=== PATIENT | male | born 1980 | race African-American/Black ===

== ENCOUNTER 2018-03-30 12:33 | Inpatient (IN) | payer MEDICAID ==
[~2018-03-30] VITALS: Ht 175.3 cm; Wt 77.1 kg
[2018-03-30] MEDS ORDERED: MORPHINE SULFATE 4 MG/ML CPJ (NOT FOR IM USE) IV STA (12:45)
[2018-03-30] MEDS ORDERED: ONDANSETRON HCL 4MG/2ML INJ IV STA (12:45)
[2018-03-30 13:49] LABS: BASOPHILS % 0.4 % (0.0-2.0); HEMATOCRIT. 44.2 % (42.0-52.0); HEMOGLOBIN. 15.1 g/dL (14.0-18.0); LYMPHOCYTES % 8.9 % (20.0-50.0); MEAN CORPUSCULAR HEMOGLOBIN 34.2 pg (28.0-32.0); MEAN CORPUSCULAR VOLUME 100.2 fL (80.0-94.0); MEAN PLATELET VOLUME 7.5 fl (7.4-10.4); MONOCYTES % 5.4 % (2.0-8.0); NEUTROPHILS % 85.3 % (40.0-76.0); PLATELET 444 x1000/uL (130-400); RED BLOOD CELL COUNT 4.42 mill/uL (4.7-6.1); RED CELL DISTRIBUTION WIDTH 13.9 % (11.6-14.6)
[2018-03-30 13:51] LABS: CHLORIDE 97 mEq/L (98-107)
[2018-03-30 13:55] LABS: INR 1.1
[2018-03-30] MEDS ORDERED: SODIUM CHLORIDE 0.9% 1,000 ML IV ONE (14:24)
[2018-03-30] MEDS ORDERED: MORPHINE SULFATE 4 MG/ML CPJ (NOT FOR IM USE) IV ONE ×2 (14:30)
[2018-03-30] MEDS ORDERED: KETOROLAC 30MG/ML VIAL IV NR (16:27)
[2018-03-30 17:18] LABS: CLARITY URINE CLEAR (CLEAR); COLOR URINE YELLOW (YELLOW); KETONES URINE 4+ (NEGATIVE); LEUKOCYTE ESTERASE URINE NEGATIVE (NEGATIVE); NITRITE URINE NEGATIVE (NEGATIVE); OCCULT BLOOD URINE 1+ (NEGATIVE); PROTEIN URINE 2+ (NEGATIVE); SPECIFIC GRAVITY URINE 1.026 (1.005-1.030); UROBILINOGEN URINE 0.2 E.U./dL (0.2-1.0)
[2018-03-30 18:00] VITALS: BP 144/92
[2018-03-30] MEDS ORDERED: HYDRALAZINE 20MG/ML VIAL IV PRN (18:45)
[2018-03-30] MEDS ORDERED: ONDANSETRON HCL 4MG/2ML INJ IV PRN (18:45)
[2018-03-30] MEDS: MORPHINE SULFATE 4 MG/ML CPJ (NOT FOR IM USE) IV PRN ×2 (19:00→22:57)
[2018-03-30] MEDS ORDERED: HYDRALAZINE 10 MG in SODIUM CHLORIDE 0.9% 49.5 ML IV PRN (19:00)
[2018-03-30] MEDS ORDERED: INFLUENZA VIRUS VACCINE(AFLURIA) 0.5ML SYR IM ONE (19:30)
[2018-03-30] MEDS: DEXT 5%/0.45% NACL 1000ML 1,000 ML IV SCH (19:52)
[2018-03-30 20:00] VITALS: BP_SYST 140; BP_SYST 147; BP_DIAS 90; BP_DIAS 97
[2018-03-31] VITALS: BP 140/88
[2018-03-31] MEDS: MORPHINE SULFATE 4 MG/ML CPJ (NOT FOR IM USE) IV PRN ×4 (03:27→20:47)
[2018-03-31 04:00] VITALS: BP 144/87
[2018-03-31 06:17] LABS: BASOPHILS % 0.2 % (0.0-2.0); EOSINOPHILS % 0.2 % (0.0-5.0); HEMATOCRIT. 40.6 % (42.0-52.0); HEMOGLOBIN. 14.3 g/dL (14.0-18.0); LYMPHOCYTES % 10.3 % (20.0-50.0); MEAN CORPUSCULAR HEMOGLOBIN 34.9 pg (28.0-32.0); MEAN CORPUSCULAR VOLUME 99.3 fL (80.0-94.0); MEAN PLATELET VOLUME 7.1 fl (7.4-10.4); MONOCYTES % 6.2 % (2.0-8.0); NEUTROPHILS % 83.1 % (40.0-76.0); PLATELET 337 x1000/uL (130-400); RED BLOOD CELL COUNT 4.09 mill/uL (4.7-6.1); RED CELL DISTRIBUTION WIDTH 14.4 % (11.6-14.6)
[2018-03-31] MEDS: DEXT 5%/0.45% NACL 1000ML 1,000 ML IV SCH ×2 (06:37→16:27)
[2018-03-31 06:45] LABS: CHLORIDE 100 mEq/L (98-107)
[2018-03-31 08:00] VITALS: BP 141/97
[2018-03-31 12:00] VITALS: BP 144/94
[2018-03-31 16:00] VITALS: BP 147/96
[2018-03-31] MEDS ORDERED: CLONIDINE 0.1MG TABLET PO PRN ×2 (16:45→22:45)
[2018-03-31] MEDS ORDERED: ONDANSETRON HCL 4MG/2ML INJ IV PRN (19:00)
[2018-03-31] MEDS ORDERED: LORAZEPAM 0.5MG TABLET PO PRN (19:00)
[2018-03-31 20:00] VITALS: BP 135/91
[2018-03-31] MEDS: FAMOTIDINE 20MG/2ML VIAL IV SCH (20:46)
[2018-03-31] MEDS ORDERED: MVI, ADULT NO.1 10 ML, FOLIC ACID 1 MG, THIAMINE HCL 100 MG in SODIUM CHLORIDE 0.9% 1,0... IV SCH ×4 (21:00)
[2018-03-31] MEDS: CHLORDIAZEPOXIDE 25MG CAPSULE PO SCH (21:04)
[2018-03-31] MEDS: ZOLPIDEM TARTRATE 5MG TABLET PO PRN (22:28)
[2018-04-01] VITALS: BP 131/89
[2018-04-01] MEDS: DEXT 5%/0.45% NACL 1000ML 1,000 ML IV SCH ×4 (03:01→16:07)
[2018-04-01 04:00] VITALS: BP 136/76
[2018-04-01] MEDS: MORPHINE SULFATE 4 MG/ML CPJ (NOT FOR IM USE) IV PRN ×3 (05:07→18:43)
[2018-04-01] MEDS: CHLORDIAZEPOXIDE 25MG CAPSULE PO SCH ×4 (05:07→21:12)
[2018-04-01 08:00] VITALS: BP 138/69
[2018-04-01] MEDS: MULTIVITAMINS,THER W-MINERALS TABLET PO SCH (08:32)
[2018-04-01] MEDS: THIAMINE HCL 100MG TABLET PO SCH (08:32)
[2018-04-01] MEDS: FOLIC ACID 1MG TABLET PO SCH (08:32)
[2018-04-01] MEDS: FAMOTIDINE 20MG/2ML VIAL IV SCH ×2 (08:32→21:12)
[2018-04-01 12:00] VITALS: BP_SYST 128; BP_SYST 134; BP_DIAS 84; BP_DIAS 93
[2018-04-01 16:00] VITALS: BP 145/93
[2018-04-01] MEDS: AMLODIPINE 5MG TABLET PO SCH (18:41)
[2018-04-01 20:00] VITALS: BP 125/79
[2018-04-01] MEDS: ZOLPIDEM TARTRATE 5MG TABLET PO PRN (21:12)
[2018-04-02] VITALS: BP 125/79
[2018-04-02] MEDS: DEXT 5%/0.45% NACL 1000ML 1,000 ML IV SCH ×3 (02:07→14:05)
[2018-04-02 04:00] VITALS: BP 134/69
[2018-04-02] MEDS: CHLORDIAZEPOXIDE 25MG CAPSULE PO SCH ×3 (05:42→21:45)
[2018-04-02 07:03] LABS: BASOPHILS % 0.3 % (0.0-2.0); EOSINOPHILS % 0.6 % (0.0-5.0); HEMATOCRIT. 35.7 % (42.0-52.0); HEMOGLOBIN. 12.4 g/dL (14.0-18.0); LYMPHOCYTES % 15.1 % (20.0-50.0); MEAN CORPUSCULAR HEMOGLOBIN 34.6 pg (28.0-32.0); MEAN CORPUSCULAR VOLUME 99.9 fL (80.0-94.0); MEAN PLATELET VOLUME 7.6 fl (7.4-10.4); MONOCYTES % 8.6 % (2.0-8.0); NEUTROPHILS % 75.4 % (40.0-76.0); PLATELET 237 x1000/uL (130-400); RED BLOOD CELL COUNT 3.57 mill/uL (4.7-6.1); RED CELL DISTRIBUTION WIDTH 13.7 % (11.6-14.6)
[2018-04-02 08:00] VITALS: BP 120/82
[2018-04-02] MEDS: AMLODIPINE 5MG TABLET PO SCH (09:00)
[2018-04-02] MEDS: FAMOTIDINE 20MG/2ML VIAL IV SCH ×2 (09:16→21:44)
[2018-04-02] MEDS: FOLIC ACID 1MG TABLET PO SCH (09:17)
[2018-04-02] MEDS: THIAMINE HCL 100MG TABLET PO SCH (09:17)
[2018-04-02] MEDS: MULTIVITAMINS,THER W-MINERALS TABLET PO SCH (09:17)
[2018-04-02] MEDS: MORPHINE SULFATE 4 MG/ML CPJ (NOT FOR IM USE) IV PRN ×2 (10:03→21:46)
[2018-04-02 12:00] VITALS: BP 121/83
[2018-04-02] MEDS ORDERED: BISACODYL 5MG TABLET PO PRN (13:30)
[2018-04-02] MEDS ORDERED: BISACODYL 10MG SUPP PR PRN (13:30)
[2018-04-02] MEDS: DOCUSATE SODIUM 250MG CAPSULE PO SCH (14:16)
[2018-04-02 16:00] VITALS: BP 119/81
[2018-04-02 20:00] VITALS: BP 113/72
[2018-04-02] MEDS: ZOLPIDEM TARTRATE 5MG TABLET PO PRN (23:33)
[2018-04-02] MEDS: ACETAMINOPHEN 650MG/20.3ML UDC PO PRN (23:34)
[2018-04-03] VITALS: BP 124/76
[2018-04-03] MEDS: DEXT 5%/0.45% NACL 1000ML 1,000 ML IV SCH ×3 (02:32→08:42)
[2018-04-03 04:00] VITALS: BP 118/80
[2018-04-03] MEDS: ACETAMINOPHEN 650MG/20.3ML UDC PO PRN (05:15)
[2018-04-03] MEDS: CHLORDIAZEPOXIDE 25MG CAPSULE PO SCH ×2 (05:15→13:07)
[2018-04-03 07:28] LABS: BASOPHILS % 0.4 % (0.0-2.0); EOSINOPHILS % 1.9 % (0.0-5.0); HEMATOCRIT. 31.7 % (42.0-52.0); HEMOGLOBIN. 11.2 g/dL (14.0-18.0); MEAN CORPUSCULAR HEMOGLOBIN 35.3 pg (28.0-32.0); MEAN CORPUSCULAR VOLUME 100.3 fL (80.0-94.0); MEAN PLATELET VOLUME 7.5 fl (7.4-10.4); MONOCYTES % 12.4 % (2.0-8.0); NEUTROPHILS % 67.3 % (40.0-76.0); PLATELET 243 x1000/uL (130-400); RED BLOOD CELL COUNT 3.16 mill/uL (4.7-6.1); RED CELL DISTRIBUTION WIDTH 13.7 % (11.6-14.6)
[2018-04-03 07:39] LABS: CHLORIDE 100 mEq/L (98-107)
[2018-04-03 08:00] VITALS: BP 131/89
[2018-04-03] MEDS: THIAMINE HCL 100MG TABLET PO SCH (08:43)
[2018-04-03] MEDS: DOCUSATE SODIUM 250MG CAPSULE PO SCH (08:43)
[2018-04-03] MEDS: AMLODIPINE 5MG TABLET PO SCH (08:43)
[2018-04-03] MEDS: FOLIC ACID 1MG TABLET PO SCH (08:43)
[2018-04-03] MEDS: FAMOTIDINE 20MG/2ML VIAL IV SCH ×2 (08:43→08:47)
[2018-04-03] MEDS: MULTIVITAMINS,THER W-MINERALS TABLET PO SCH (08:44)
[2018-04-03] MEDS ORDERED: POTASSIUM CHLORIDE 20MEQ TABLET SR PO SCH ×2 (08:45→10:30)
[2018-04-03] MEDS ORDERED: CYAN100T MT (10:30)
[2018-04-03] MEDS ORDERED: THIA100T72 PO (10:30)
[2018-04-03] MEDS ORDERED: FOLI-43 PO (10:30)
[2018-04-03] MEDS ORDERED: AMLO5TAB88 PO (10:30)
[2018-04-03] MEDS ORDERED: L25 PO (10:30)
[2018-04-03 11:05] VITALS: BP 131/89
[2018-04-03 12:00] VITALS: BP 128/81
[2018-04-03 16:00] VITALS: BP 128/83
== END 2018-04-03 17:15 | disposition home or self-care (01) | DRG 282 ==
LOC: ER 14:30 → 6EST 15:13 → ENRESERV 16:35
PROVIDERS: ADMIT Internal Medicine; ATTEND Internal Medicine
DX: K85.20 Alcohol induced acute pancreatitis without necrosis or infection (principal); R65.10 Systemic inflammatory response syndrome (SIRS) of non-infectious origin without acute organ dysfunction; K76.0 Fatty (change of) liver, not elsewhere classified; D53.9 Nutritional anemia, unspecified; D63.8 Anemia in other chronic diseases classified elsewhere; F10.10 Alcohol abuse, uncomplicated; I10 Essential (primary) hypertension; Z87.891 Personal history of nicotine dependence; Z90.49 Acquired absence of other specified parts of digestive tract
CPT/HCPCS: 36415; 71045; 74018; 74176; 76700; 80048; 80076; 83036; 84132; 84478; 93005; 96361; 96374; 96375; 99285; J1885; J2270; J2405; J3411; J3490; J7030

== ENCOUNTER 2019-02-20 16:46 | Emergency (ER) | payer MEDICAID, OTHER ==
[~2019-02-20] VITALS: Ht 172.7 cm; Wt 75.0 kg
[~2019-02-20 16:46] MED LIST: AMLO5TAB88 PO; CYAN100T45 MT; FOLI-43 PO; L25 PO; THIA100T72 PO
[2019-02-20] MEDS ORDERED: RISPERIDONE 1MG TABLET PO SCH (17:45)
[2019-02-20 17:46] LABS: CLARITY URINE CLEAR (CLEAR); COLOR URINE YELLOW (YELLOW); KETONES URINE NEGATIVE (NEGATIVE); LEUKOCYTE ESTERASE URINE NEGATIVE (NEGATIVE); NITRITE URINE NEGATIVE (NEGATIVE); OCCULT BLOOD URINE NEGATIVE (NEGATIVE); PH URINE 6.5 (4.5-8.0); PROTEIN URINE 2+ (NEGATIVE); SPECIFIC GRAVITY URINE 1.009 (1.005-1.030); UROBILINOGEN URINE 0.2 E.U./dL (0.2-1.0)
[2019-02-20 17:58] LABS: *AMPHETAMINES SCREEN URINE NEGATIVE (NEGATIVE); *BARBITURATES SCREEN URINE NEGATIVE (NEGATIVE); *BENZODIAZEPINES SCREEN URINE NEGATIVE (NEGATIVE)
[2019-02-20 17:59] LABS: *COCAINE SCREEN URINE NEGATIVE (NEGATIVE); CANNABINOID URINE SCREEN PRESUMTIVE POSITIVE (NEGATIVE); METHADONE URINE SCREEN NEGATIVE (NEGATIVE); OPIATES URINE SCREEN NEGATIVE (NEGATIVE); PHENCYCLIDINE URINE SCREEN PRESUMTIVE POSITIVE (NEGATIVE)
[2019-02-20 18:30] LABS: CHLORIDE 107 mEq/L (98-107)
[2019-02-20 18:32] LABS: HEMATOCRIT. 46.7 % (42.0-52.0); HEMOGLOBIN. 15.6 g/dL (14.0-18.0); MEAN CORPUSCULAR HEMOGLOBIN 32.1 pg (28.0-32.0); MEAN CORPUSCULAR VOLUME 96.1 fL (80.0-94.0); MEAN PLATELET VOLUME 6.6 fl (7.4-10.4); PLATELET 289 x1000/uL (130-400); RED BLOOD CELL COUNT 4.86 mill/uL (4.7-6.1); RED CELL DISTRIBUTION WIDTH 14.4 % (11.6-14.6)
[2019-02-20 18:55] LABS: PLATELET ESTIMATE NORMAL
[2019-02-20 19:00] LABS: ETHANOL BLOOD 380 mg/dL
[2019-02-20] MEDS ORDERED: QUETIAPINE FUMARATE 25MG TABLET PO SCH (19:30)
[2019-02-21] MEDS ORDERED: CHLORDIAZEPOXIDE 25MG CAPSULE PO ONE (07:45)
[2019-02-21 09:45] VITALS: BP 128/90
== END 2019-02-21 09:45 | disposition home or self-care (01) ==
LOC: ER 16:46
DX: T51.0X1A Toxic effect of ethanol, accidental (unintentional), initial encounter (principal); R45.851 Suicidal ideations; F16.10 Hallucinogen abuse, uncomplicated; F10.129 Alcohol abuse with intoxication, unspecified; Z90.49 Acquired absence of other specified parts of digestive tract; Z79.899 Other long term (current) drug therapy; Y90.9 Presence of alcohol in blood, level not specified; Y92.89 Other specified places as the place of occurrence of the external cause
CPT/HCPCS: 36415; 80305; 80320; 81003; 99284; G0480

== ENCOUNTER 2019-04-09 11:56 | Emergency (ER) | payer OTHER ==
[~2019-04-09] VITALS: Ht 175.3 cm; Wt 80.0 kg
[2019-04-09] MEDS ORDERED: SODIUM CHLORIDE 0.9% 1,000 ML IV ONE (12:23)
[2019-04-09] MEDS ORDERED: LORAZEPAM 2MG/ML CPJ IV STA (12:23)
[2019-04-09] MEDS ORDERED: MORPHINE SULFATE 4 MG/ML CPJ (NOT FOR IM USE) IV STA (12:23)
[2019-04-09] MEDS ORDERED: ONDANSETRON HCL 4MG/2ML INJ IV STA (12:23)
[2019-04-09 13:18] LABS: BASOPHILS % 0.2 % (0.0-2.0); EOSINOPHILS % 1.3 % (0.0-5.0); HEMOGLOBIN. 13.9 g/dL (14.0-18.0); LYMPHOCYTES % 52.8 % (20.0-50.0); MEAN CORPUSCULAR HEMOGLOBIN 32.3 pg (28.0-32.0); MEAN CORPUSCULAR VOLUME 95.1 fL (80.0-94.0); MEAN PLATELET VOLUME 6.7 fl (7.4-10.4); MONOCYTES % 6.3 % (2.0-8.0); NEUTROPHILS % 39.4 % (40.0-76.0); PLATELET 373 x1000/uL (130-400); RED BLOOD CELL COUNT 4.31 mill/uL (4.7-6.1); RED CELL DISTRIBUTION WIDTH 13.7 % (11.6-14.6)
[2019-04-09 13:24] LABS: CHLORIDE 106 mEq/L (98-107)
[2019-04-09 13:28] LABS: ETHANOL BLOOD 298 mg/dL
[2019-04-09 13:39] LABS: CREATINE KINASE 190 IU/L (39-308)
[2019-04-09 15:11] LABS: *AMPHETAMINES SCREEN URINE NEGATIVE (NEGATIVE); *BARBITURATES SCREEN URINE NEGATIVE (NEGATIVE); *BENZODIAZEPINES SCREEN URINE NEGATIVE (NEGATIVE); *COCAINE SCREEN URINE NEGATIVE (NEGATIVE)
[2019-04-09 15:12] LABS: CANNABINOID URINE SCREEN PRESUMTIVE POSITIVE (NEGATIVE); METHADONE URINE SCREEN NEGATIVE (NEGATIVE); OPIATES URINE SCREEN PRESUMTIVE POSITIVE (NEGATIVE); PHENCYCLIDINE URINE SCREEN NEGATIVE (NEGATIVE)
[2019-04-09 15:57] LABS: CLARITY URINE CLEAR (CLEAR); COLOR URINE YELLOW (YELLOW); KETONES URINE TRACE (NEGATIVE); LEUKOCYTE ESTERASE URINE NEGATIVE (NEGATIVE); NITRITE URINE NEGATIVE (NEGATIVE); OCCULT BLOOD URINE TRACE (NEGATIVE); PH URINE 5.5 (4.5-8.0); PROTEIN URINE 1+ (NEGATIVE); SPECIFIC GRAVITY URINE 1.012 (1.005-1.030); UROBILINOGEN URINE 0.2 E.U./dL (0.2-1.0)
[2019-04-09] MEDS ORDERED: DEXTROSE 50% WATER 50ML SYRINGE IV ONE (16:00)
[2019-04-09] MEDS ORDERED: MORPHINE SULFATE 4 MG/ML CPJ (NOT FOR IM USE) IV ONE (17:15)
[2019-04-10] MEDS: QUETIAPINE FUMARATE 50MG TABLET PO SCH (06:43)
[2019-04-10] MEDS ORDERED: IBUPROFEN 600MG TABLET PO STA (11:45)
[2019-04-10] MEDS ORDERED: ACETAMINOPHEN 325MG TABLET PO ONE (18:00)
[2019-04-10] MEDS ORDERED: QUETIAPINE FUMARATE 50MG TABLET PO SCH (21:00)
[2019-04-11] MEDS: QUETIAPINE FUMARATE 50MG TABLET PO SCH (09:23)
[2019-04-11 10:26] VITALS: BP 120/73
== END 2019-04-11 10:26 | disposition home or self-care (01) ==
LOC: ER 11:56
DX: R45.851 Suicidal ideations (principal); M54.5 Low back pain; R20.0 Anesthesia of skin; E16.2 Hypoglycemia, unspecified; F10.229 Alcohol dependence with intoxication, unspecified; F14.10 Cocaine abuse, uncomplicated; F15.10 Other stimulant abuse, uncomplicated; Z79.899 Other long term (current) drug therapy; Y90.8 Blood alcohol level of 240 mg/100 ml or more
CPT/HCPCS: 36415; 71045; 72100; 72148; 80053; 80305; 80307; 80320; 80329; 81003; 82550; 82962; 85025; 93005; 96374; 96375; 96376; 99284; J2060; J2270; J2405; J7030; Z7610; G0480

== ENCOUNTER 2019-06-23 22:17 | Emergency (ER) | payer OTHER ==
[~2019-06-23] VITALS: Ht 172.7 cm; Wt 68.0 kg
[2019-06-23] MEDS ORDERED: MORPHINE SULFATE 4 MG/ML CPJ (NOT FOR IM USE) IV STA (23:47)
[2019-06-23] MEDS ORDERED: ONDANSETRON HCL 4MG/2ML INJ IV STA (23:47)
[2019-06-23] MEDS ORDERED: SODIUM CHLORIDE 0.9% 1,000 ML IV ONE ×2 (23:47)
[2019-06-24] MEDS ORDERED: TETANUS, DIPHTHERIA, PERTUSSIS VAC/PF 0.5ML (>7YR OLD) IM ONE
[2019-06-24] MEDS ORDERED: CEFAZOLIN 1000MG PREMIX 50 ML IV ONE
[2019-06-24] MEDS ORDERED: LIDOCAINE HCL/EPINEPHRINE 1%-EPI 1:100,000 20 ML VIAL INFIL ONE
[2019-06-24 00:14] LABS: BASOPHILS % 0.3 % (0.0-2.0); EOSINOPHILS % 0.7 % (0.0-5.0); HEMATOCRIT. 48.2 % (42.0-52.0); HEMOGLOBIN. 15.8 g/dL (14.0-18.0); LYMPHOCYTES % 12.8 % (20.0-50.0); MEAN CORPUSCULAR HEMOGLOBIN 32.2 pg (28.0-32.0); MEAN CORPUSCULAR VOLUME 98.2 fL (80.0-94.0); MEAN PLATELET VOLUME 6.8 fl (7.4-10.4); MONOCYTES % 3.5 % (2.0-8.0); NEUTROPHILS % 82.7 % (40.0-76.0); PLATELET 373 x1000/uL (130-400); RED BLOOD CELL COUNT 4.91 mill/uL (4.7-6.1); RED CELL DISTRIBUTION WIDTH 15.1 % (11.6-14.6)
[2019-06-24 00:17] LABS: CHLORIDE 106 mEq/L (98-107)
[2019-06-24] MEDS ORDERED: ONDANSETRON HCL 4MG/2ML INJ IV ONE (03:45)
[2019-06-24] MEDS ORDERED: BACITRACIN ZINC OINT UDPKT TOP ONE ×2 (03:45)
[2019-06-24] MEDS ORDERED: MORPHINE SULFATE 4 MG/ML CPJ (NOT FOR IM USE) IV ONE (03:45)
[2019-06-24 04:44] VITALS: BP 119/72
[2019-06-24] MEDS ORDERED: IOHEXOL-300 100 ML BOTTLE ONE (07:21)
== END 2019-06-24 05:37 | disposition home or self-care (01) ==
LOC: ER 22:17
DX: S02.2XXA Fracture of nasal bones, initial encounter for closed fracture (principal); S01.412A Laceration without foreign body of left cheek and temporomandibular area, initial encounter; S80.212A Abrasion, left knee, initial encounter; S80.211A Abrasion, right knee, initial encounter; G40.909 Epilepsy, unspecified, not intractable, without status epilepticus; F14.10 Cocaine abuse, uncomplicated; F15.10 Other stimulant abuse, uncomplicated; F17.210 Nicotine dependence, cigarettes, uncomplicated; Z91.14 Patient's other noncompliance with medication regimen; W01.0XXA Fall on same level from slipping, tripping and stumbling without subsequent striking against object, initial encounter; Y93.89 Activity, other specified; Y92.89 Other specified places as the place of occurrence of the external cause
CPT/HCPCS: 12013; 36415; 70450; 70486; 71045; 72125; 73562; 74177; 80053; 85025; 86850; 86900; 86901; 90471; 90715; 96365; 96375; 96376; 99284; J0690; J2270; J2405; J3490; J7030; Q9967

== ENCOUNTER 2019-07-03 13:25 | Emergency (ER) | payer OTHER ==
[~2019-07-03] VITALS: Ht 170.2 cm; Wt 75.0 kg
[2019-07-03] MEDS ORDERED: ACETAMINOPHEN 325MG TABLET PO ONE (16:45)
[2019-07-03 17:02] LABS: BASOPHILS % 0.8 % (0.0-2.0); CHLORIDE 108 mEq/L (98-107); EOSINOPHILS % 2.7 % (0.0-5.0); HEMATOCRIT. 38.5 % (42.0-52.0); HEMOGLOBIN. 12.8 g/dL (14.0-18.0); MEAN CORPUSCULAR HEMOGLOBIN 32.6 pg (28.0-32.0); MEAN CORPUSCULAR VOLUME 97.7 fL (80.0-94.0); MEAN PLATELET VOLUME 7.2 fl (7.4-10.4); MONOCYTES % 8.4 % (2.0-8.0); NEUTROPHILS % 38.1 % (40.0-76.0); PLATELET 238 x1000/uL (130-400); RED BLOOD CELL COUNT 3.94 mill/uL (4.7-6.1); RED CELL DISTRIBUTION WIDTH 15.3 % (11.6-14.6)
[2019-07-03 17:34] LABS: ETHANOL BLOOD 357 mg/dL
[2019-07-03] MEDS ORDERED: PHENYTOIN SODIUM 1,000 MG in SODIUM CHLORIDE 0.9% 100 ML IV NR (18:09)
[2019-07-03 20:55] VITALS: BP 106/65
== END 2019-07-03 20:57 | disposition home or self-care (01) ==
LOC: ER 13:25
DX: G40.909 Epilepsy, unspecified, not intractable, without status epilepticus (principal); F10.129 Alcohol abuse with intoxication, unspecified; Y90.8 Blood alcohol level of 240 mg/100 ml or more; Z91.14 Patient's other noncompliance with medication regimen; R89.2 Abnormal level of other drugs, medicaments and biological substances in specimens from other organs, systems and tissues; Z59.0 Homelessness; R32 Unspecified urinary incontinence; S09.90XA Unspecified injury of head, initial encounter; X58.XXXA Exposure to other specified factors, initial encounter; Y93.89 Activity, other specified; Y92.89 Other specified places as the place of occurrence of the external cause; Z48.02 Encounter for removal of sutures
CPT/HCPCS: 36415; 70450; 80053; 80185; 80320; 85025; 96365; 96366; 99284; J1165; J7050; G0480

== ENCOUNTER 2020-11-17 21:06 | Emergency (ER) | payer OTHER ==
[~2020-11-17] VITALS: Ht 182.9 cm; Wt 91.0 kg
[~2020-11-17 21:06] MED LIST changes: +CYAN100T43 MT; -CYAN100T45 MT
[2020-11-17 22:40] LABS: CLARITY URINE CLEAR (CLEAR); COLOR URINE YELLOW (YELLOW); KETONES URINE NEGATIVE (NEGATIVE); LEUKOCYTE ESTERASE URINE NEGATIVE (NEGATIVE); NITRITE URINE NEGATIVE (NEGATIVE); OCCULT BLOOD URINE NEGATIVE (NEGATIVE); PROTEIN URINE NEGATIVE (NEGATIVE); SPECIFIC GRAVITY URINE 1.006 (1.005-1.030); UROBILINOGEN URINE 0.2 E.U./dL (0.2-1.0)
[2020-11-17 22:55] LABS: *BARBITURATES SCREEN URINE NEGATIVE (NEGATIVE); *BENZODIAZEPINES SCREEN URINE NEGATIVE (NEGATIVE); CANNABINOID URINE SCREEN NEGATIVE (NEGATIVE); METHADONE URINE SCREEN NEGATIVE (NEGATIVE); OPIATES URINE SCREEN NEGATIVE (NEGATIVE); PHENCYCLIDINE URINE SCREEN NEGATIVE (NEGATIVE)
[2020-11-17 22:56] LABS: *AMPHETAMINES SCREEN URINE NEGATIVE (NEGATIVE); *COCAINE SCREEN URINE NEGATIVE (NEGATIVE)
[2020-11-18 00:33] LABS: BASOPHILS % 0.8 % (0.0-2.0); EOSINOPHILS % 1.3 % (0.0-5.0); HEMATOCRIT. 35.2 % (42.0-52.0); HEMOGLOBIN. 11.9 g/dL (14.0-18.0); LYMPHOCYTES % 57.8 % (20.0-50.0); MEAN CORPUSCULAR HEMOGLOBIN 30.9 pg (28.0-32.0); MEAN CORPUSCULAR VOLUME 91.3 fL (80.0-94.0); MEAN PLATELET VOLUME 6.5 fl (7.4-10.4); MONOCYTES % 7.7 % (2.0-8.0); NEUTROPHILS % 32.4 % (40.0-76.0); PLATELET 484 x1000/uL (130-400); RED BLOOD CELL COUNT 3.85 mill/uL (4.7-6.1); RED CELL DISTRIBUTION WIDTH 14.7 % (11.6-14.6)
[2020-11-18 00:37] LABS: CHLORIDE 108 mEq/L (98-107)
[2020-11-18 00:49] LABS: ETHANOL BLOOD 355 mg/dL
[2020-11-18 04:41] VITALS: BP 103/66
== END 2020-11-18 05:13 | disposition home or self-care (01) ==
LOC: ER 21:06
DX: F10.229 Alcohol dependence with intoxication, unspecified (principal); Y90.8 Blood alcohol level of 240 mg/100 ml or more; G40.909 Epilepsy, unspecified, not intractable, without status epilepticus; F14.10 Cocaine abuse, uncomplicated; F16.10 Hallucinogen abuse, uncomplicated
CPT/HCPCS: 36415; 80053; 80305; 80320; 81003; 82962; 85025; 93005; 99285; G0480

== ENCOUNTER 2022-04-19 15:22 | Emergency (ER) | payer MEDICAID, OTHER ==
[~2022-04-19] VITALS: Ht 188 cm; Wt 87.0 kg
[~2022-04-19 15:22] MED LIST changes: +LEVE1000 MT
[2022-04-19 16:00] VITALS: BP 131/93
== END 2022-04-19 19:38 | disposition home or self-care (01) ==
LOC: ER 15:22
DX: F10.129 Alcohol abuse with intoxication, unspecified (principal); I10 Essential (primary) hypertension; Z86.59 Personal history of other mental and behavioral disorders; Y90.9 Presence of alcohol in blood, level not specified
CPT/HCPCS: 99283

== ENCOUNTER 2022-06-25 12:13 | Inpatient (IN) | payer MEDICAID ==
[~2022-06-25] VITALS: Ht 175.3 cm; Wt 67.4 kg
[2022-06-25] MEDS ORDERED: FOLIC ACID 1 MG, THIAMINE HCL 100 MG, MVI, ADULT NO.1 10 ML in DEXTROSE 5% WATER 1,000 ML IV ONE ×4 (12:45)
[2022-06-25] MEDS ORDERED: LORAZEPAM 2MG/ML CPJ IV ONE (12:45)
[2022-06-25] MEDS ORDERED: SODIUM CHLORIDE 0.9% 1,000 ML IV ONE (12:45)
[2022-06-25] MEDS ORDERED: LEVETIRACETAM 500MG PREMIX 100 ML IV NR (13:00)
[2022-06-25 13:29] LABS: HEMATOCRIT. 46.3 % (42.0-52.0); MEAN CORPUSCULAR VOLUME 101.8 fL (80.0-94.0); MEAN PLATELET VOLUME 8.5 fl (7.4-10.4); PLATELET 235 x1000/uL (130-400); RED BLOOD CELL COUNT 4.55 mill/uL (4.7-6.1)
[2022-06-25 13:35] LABS: CHLORIDE 97 mEq/L (98-107)
[2022-06-25 13:44] LABS: ETHANOL BLOOD 48 mg/dL
[2022-06-25 13:50] LABS: PLATELET ESTIMATE NORMAL
[2022-06-25 15:11] LABS: CLARITY URINE CLEAR (CLEAR); COLOR URINE YELLOW (YELLOW); KETONES URINE 2+ (NEGATIVE); LEUKOCYTE ESTERASE URINE NEGATIVE (NEGATIVE); NITRITE URINE NEGATIVE (NEGATIVE); OCCULT BLOOD URINE 2+ (NEGATIVE); PROTEIN URINE 3+ (NEGATIVE); SPECIFIC GRAVITY URINE 1.017 (1.005-1.030); UROBILINOGEN URINE 0.2 E.U./dL (0.2-1.0)
[2022-06-25 15:34] LABS: *AMPHETAMINES SCREEN URINE NEGATIVE (NEGATIVE); *BARBITURATES SCREEN URINE NEGATIVE (NEGATIVE); *BENZODIAZEPINES SCREEN URINE NEGATIVE (NEGATIVE); *COCAINE SCREEN URINE NEGATIVE (NEGATIVE); CANNABINOID URINE SCREEN PRESUMTIVE POSITIVE (NEGATIVE); METHADONE URINE SCREEN NEGATIVE (NEGATIVE); OPIATES URINE SCREEN NEGATIVE (NEGATIVE); PHENCYCLIDINE URINE SCREEN NEGATIVE (NEGATIVE)
[2022-06-25] MEDS ORDERED: LACTATED RINGERS 1,000 ML IV ONE (16:00)
[2022-06-26] VITALS (7 sets, daily range): BP systolic 132–161; BP diastolic 80–99
[2022-06-26] MEDS ORDERED: SODIUM CHLORIDE 0.45% 1,000 ML IV SCH (03:30)
[2022-06-26] MEDS ORDERED: ONDANSETRON HCL 4MG/2ML INJ IV PRN ×2 (03:30→07:45)
[2022-06-26] MEDS ORDERED: LORAZEPAM 2MG/ML CPJ IV PRN ×2 (03:30→08:15)
[2022-06-26] MEDS ORDERED: MORPHINE SULFATE 2 MG/ML CPJ (NOT FOR IM USE) IV PRN (03:30)
[2022-06-26] MEDS ORDERED: NALOXONE HCL 0.4MG/ML VIAL IV PRN (03:45)
[2022-06-26] MEDS ORDERED: GUAIFENESIN 200MG/10ML SUGAR FREE UDC PO PRN (07:45)
[2022-06-26] MEDS ORDERED: IPRATROPIUM/ALBUTEROL 0.5-3(2.5)MG/3ML NEB HHN PRN (07:45)
[2022-06-26] MEDS ORDERED: ACETAMINOPHEN 325MG TABLET PO PRN ×2 (07:45)
[2022-06-26] MEDS ORDERED: LIDOCAINE HCL 1% 30ML VIAL (10MG/ML) ONE (07:52)
[2022-06-26] MEDS ORDERED: IPRATROPIUM BROMIDE (0.02%) 0.5MG/2.5ML NEB HHN PRN (08:15)
[2022-06-26] MEDS ORDERED: ALBUTEROL (0.083%) 2.5MG/3ML NEB HHN PRN (08:15)
[2022-06-26] MEDS ORDERED: MVI, ADULT NO.1 10 ML, FOLIC ACID 1 MG, THIAMINE HCL 100 MG in SODIUM CHLORIDE 0.9% 988... IV SCH ×4 (09:00)
[2022-06-26] MEDS ORDERED: MEDICATION NOT ON FORMULARY EA (Levetiracetam (Keppra) 1 TAB) MT SCH (09:00)
[2022-06-26] MEDS ORDERED: AMLODIPINE 5MG TABLET PO SCH (09:00)
[2022-06-26] MEDS: LEVETIRACETAM 500MG TABLET PO SCH ×2 (09:28→17:30)
[2022-06-26] MEDS: FOLIC ACID 1MG TABLET PO SCH (09:28)
[2022-06-26] MEDS: THIAMINE HCL 100MG TABLET PO SCH (09:29)
[2022-06-26] MEDS: ENOXAPARIN 40MG/0.4ML SYR SUBCUT SCH (09:30)
[2022-06-26] MEDS: DEXT 5%/0.45% NACL 1000ML 1,000 ML IV SCH ×3 (09:30→21:58)
[2022-06-26] MEDS: CYANOCOBALAMIN 100MCG TABLET PO SCH (12:02)
[2022-06-26 12:51] LABS: PHOSPHORUS 2.2 mg/dL (2.5-4.9)
[2022-06-26] MEDS: CHLORDIAZEPOXIDE 25MG CAPSULE PO SCH ×2 (13:07→22:04)
[2022-06-26 14:57] LABS: CREATINE KINASE MB FRACTION 7.9 ng/mL (0.5-3.6)
[2022-06-26] MEDS: QUETIAPINE FUMARATE 50MG TABLET PO SCH (21:57)
[2022-06-26 23:33] LABS: CREATINE KINASE MB FRACTION 5.6 ng/mL (0.5-3.6)
[2022-06-27] VITALS: BP 128/74
[2022-06-27 04:00] VITALS: BP 134/79
[2022-06-27] MEDS: CHLORDIAZEPOXIDE 25MG CAPSULE PO SCH (06:00)
[2022-06-27] MEDS ORDERED: AMLODIPINE 5MG TABLET PO SCH (09:00)
[2022-06-27] MEDS: FOLIC ACID 1MG TABLET PO SCH (09:39)
[2022-06-27] MEDS: QUETIAPINE FUMARATE 50MG TABLET PO SCH ×2 (09:40→20:50)
[2022-06-27] MEDS: THIAMINE HCL 100MG TABLET PO SCH (09:41)
[2022-06-27] MEDS: CYANOCOBALAMIN 100MCG TABLET PO SCH (09:41)
[2022-06-27] MEDS: LEVETIRACETAM 500MG TABLET PO SCH ×2 (09:41→17:21)
[2022-06-27 10:24] LABS: BASOPHILS % 0.2 % (0.0-2.0); EOSINOPHILS % 0.1 % (0.0-5.0); HEMOGLOBIN. 14.2 g/dL (14.0-18.0); LYMPHOCYTES % 19.2 % (20.0-50.0); MEAN CORPUSCULAR HEMOGLOBIN 33.1 pg (28.0-32.0); MEAN PLATELET VOLUME 8.5 fl (7.4-10.4); NEUTROPHILS % 73.5 % (40.0-76.0); PLATELET 165 x1000/uL (130-400); RED BLOOD CELL COUNT 4.28 mill/uL (4.7-6.1)
[2022-06-27 10:27] LABS: RED CELL DISTRIBUTION WIDTH 13.9 % (11.6-14.6)
[2022-06-27] MEDS ORDERED: POTASSIUM PHOS,M-BASIC-D-BASIC 15 MMOL in DEXT 5% WATER 245 ML IV NR (10:30)
[2022-06-27 10:31] LABS: CHLORIDE 93 mEq/L (98-107)
[2022-06-27 10:47] LABS: HDL CHOLESTEROL 74 mg/dL (40-59); LDL CHOLESTEROL 72 mg/dL (5-100); T4 FREE 0.95 ng/dL (0.76-1.46)
[2022-06-27] MEDS ORDERED: DOCUSATE SODIUM 100MG CAPSULE PO PRN (11:00)
[2022-06-27] MEDS ORDERED: HYDROCODONE/ACETAMINOPHEN 5/325MG TABLET PO PRN (11:15)
[2022-06-27] MEDS ORDERED: POTASSIUM CHLORIDE INJ 40 MEQ in DEXT 5% WATER 250 ML IV ONE (11:30)
[2022-06-27] MEDS: DOCUSATE SODIUM 100MG CAPSULE PO SCH (12:17)
[2022-06-27] MEDS: ENOXAPARIN 40MG/0.4ML SYR SUBCUT SCH (12:18)
[2022-06-27] MEDS ORDERED: KEPP500 PO (14:45)
[2022-06-27] MEDS ORDERED: IBUP-2029 PO (14:52)
[2022-06-27] MEDS ORDERED: QUET100T PO (14:52)
[2022-06-27] MEDS ORDERED: OMEP20TA15 PO (14:52)
[2022-06-27] MEDS ORDERED: POTASSIUM CHLORIDE 20MEQ TABLET SR PO NR (16:30)
[2022-06-27 17:02] LABS: PHOSPHORUS 2.1 mg/dL (2.5-4.9)
[2022-06-27] MEDS: DEXT 5%/0.45% NACL 1000ML 1,000 ML IV SCH (17:17)
[2022-06-27] MEDS ORDERED: AMLODIPINE 10MG TABLET PO SCH (19:40)
[2022-06-27 20:00] VITALS: BP 137/74
[2022-06-27] MEDS: FAMOTIDINE 20MG TABLET PO SCH (20:50)
[2022-06-28] VITALS: BP 141/93
[2022-06-28 04:00] VITALS: BP 139/99
[2022-06-28 08:00] VITALS: BP 149/102
[2022-06-28 09:34] LABS: HEMATOCRIT 38.4 % (42.0-52.0); HEMOGLOBIN 13.2 g/dL (14.0-18.0); MEAN CORPUSCULAR HEMOGLOBIN 33.2 pg (28.0-32.0); MEAN CORPUSCULAR VOLUME 96.6 fL (80.0-94.0); PLATELET 156 x1000/uL (130-400); RED BLOOD CELL COUNT 3.98 mill/uL (4.7-6.1); RED CELL DISTRIBUTION WIDTH 13.8 % (11.6-14.6)
[2022-06-28] MEDS: QUETIAPINE FUMARATE 50MG TABLET PO SCH (09:39)
[2022-06-28] MEDS: LEVETIRACETAM 500MG TABLET PO SCH (09:39)
[2022-06-28] MEDS: ENOXAPARIN 40MG/0.4ML SYR SUBCUT SCH (09:39)
[2022-06-28] MEDS: FOLIC ACID 1MG TABLET PO SCH (09:39)
[2022-06-28 09:40] LABS: CHLORIDE 93 mEq/L (98-107)
[2022-06-28] MEDS: FAMOTIDINE 20MG TABLET PO SCH (09:40)
[2022-06-28] MEDS: DOCUSATE SODIUM 100MG CAPSULE PO SCH (09:40)
[2022-06-28] MEDS: THIAMINE HCL 100MG TABLET PO SCH (09:50)
[2022-06-28] MEDS: CYANOCOBALAMIN 100MCG TABLET PO SCH (09:50)
[2022-06-28] MEDS ORDERED: POTASSIUM CHLORIDE 20MEQ TABLET SR PO NR ×2 (10:30→13:00)
[2022-06-28 12:37] VITALS: BP 138/90
== END 2022-06-28 13:20 | disposition home or self-care (01) | DRG 282 ==
LOC: ER 12:22 → MICUSO 16:43 → 7EST 06-26 00:42 → UNDODISIN 06-27 15:55
PROVIDERS: ADMIT Internal Medicine; ATTEND Internal Medicine
PROC: 02H633Z Insertion of Infusion Device into Right Atrium, Percutaneous Approach (ICD-10-PCS; principal; 2022-06-26)
PROC: B518ZZA Fluoroscopy of Superior Vena Cava, Guidance (ICD-10-PCS; 2022-06-26)
PROC: 4A00X4Z Measurement of Central Nervous Electrical Activity, External Approach (ICD-10-PCS; 2022-06-27)
DX: K85.20 Alcohol induced acute pancreatitis without necrosis or infection (principal); G93.41 Metabolic encephalopathy; R65.10 Systemic inflammatory response syndrome (SIRS) of non-infectious origin without acute organ dysfunction; K76.0 Fatty (change of) liver, not elsewhere classified; K83.8 Other specified diseases of biliary tract; G40.909 Epilepsy, unspecified, not intractable, without status epilepticus; I10 Essential (primary) hypertension; F39 Unspecified mood [affective] disorder; D72.829 Elevated white blood cell count, unspecified; D75.89 Other specified diseases of blood and blood-forming organs; F17.200 Nicotine dependence, unspecified, uncomplicated; Y90.2 Blood alcohol level of 40-59 mg/100 ml; Z91.14 Patient's other noncompliance with medication regimen; Z79.899 Other long term (current) drug therapy; Z59.01 Sheltered homelessness
CPT/HCPCS: 36415; 36573; 71045; 76705; 80048; 80053; 80061; 80165; 80185; 80305; 80320; 81003; 82550; 82553; 83036; 83605; 83735; 84100; 84145; 84425; 84439; 84443; 84481; 85025; 85027; 93306; 95816; 99285; C1725; C1893; J1650; J1953; J2060; J2270; J2405; J3411; J3480; J3490; J7030; J7060; J7070; J7120; G0480

== ENCOUNTER 2022-11-25 20:05 | Emergency (ER) | payer MEDICAID ==
[~2022-11-25] VITALS: Ht 170.2 cm; Wt 84.0 kg
[~2022-11-25 20:05] MED LIST changes: +IBUP-2029 PO; -LEVE1000 MT; +LEVE750T4 PO; +OMEP20TA15 PO; +PHEN60TA PO; +QUET100T PO
[2022-11-25 20:11] VITALS: O2SAT 99
[2022-11-25] MEDS ORDERED: SODIUM CHLORIDE 0.9% 1,000 ML IV ONE (20:45)
[2022-11-25 21:01] LABS: BASOPHILS % 0.7 % (0.0-2.0); EOSINOPHILS % 1.4 % (0.0-5.0); HEMATOCRIT. 35.3 % (42.0-52.0); HEMOGLOBIN. 11.7 g/dL (14.0-18.0); LYMPHOCYTES % 31.7 % (20.0-50.0); MEAN CORPUSCULAR VOLUME 102.7 fL (80.0-94.0); MEAN PLATELET VOLUME 7.4 fl (7.4-10.4); MONOCYTES % 8.8 % (2.0-8.0); NEUTROPHILS % 57.4 % (40.0-76.0); PLATELET 218 x1000/uL (130-400); RED BLOOD CELL COUNT 3.43 mill/uL (4.7-6.1); RED CELL DISTRIBUTION WIDTH 13.9 % (11.6-14.6)
[2022-11-25 21:07] LABS: CHLORIDE 100 mEq/L (98-107)
[2022-11-25 21:15] LABS: ETHANOL BLOOD 43 mg/dL (-10)
[2022-11-25] MEDS ORDERED: LEVETIRACETAM 500MG PREMIX 100 ML IV ONE (22:00)
[2022-11-25] MEDS ORDERED: LORAZEPAM 2MG/ML CPJ IV ONE (22:00)
[2022-11-25 23:40] VITALS: BP 140/81; PULSE 98; RESP 19; TEMP 98.3
[2022-11-25] MEDS ORDERED: KEPP500 MT (23:49)
== END 2022-11-26 00:02 | disposition home or self-care (01) ==
LOC: ER 20:05
DX: R56.9 Unspecified convulsions (principal); F10.129 Alcohol abuse with intoxication, unspecified; Y90.2 Blood alcohol level of 40-59 mg/100 ml; I10 Essential (primary) hypertension; Z79.899 Other long term (current) drug therapy
CPT/HCPCS: 80053; 80320; 85025; 36415; 93005; 96365; 96375; 99284; J1953; J2060; J7030; Z7610 ×4; G0480

== ENCOUNTER 2023-01-31 05:05 | Emergency (ER) | payer MEDICAID ==
[~2023-01-31] VITALS: Ht 172.7 cm; Wt 82.0 kg
[~2023-01-31 05:05] MED LIST changes: -IBUP-2029 PO; -L25 PO; +LEVE1000 MT; -LEVE750T4 PO; +PHEN30TA50 MT; -PHEN60TA PO; -QUET100T PO
[2023-01-31 05:07] VITALS: O2SAT 99
[2023-01-31] MEDS ORDERED: LEVETIRACETAM 500MG TABLET PO ONE (05:30)
[2023-01-31] MEDS ORDERED: LORAZEPAM 2MG/ML CPJ IV ONE (06:45)
[2023-01-31] MEDS ORDERED: KEPP500 MT (10:06)
[2023-01-31 11:25] VITALS: BP 150/94; PULSE 97; RESP 20; TEMP 98.5
== END 2023-01-31 12:18 | disposition home or self-care (01) ==
LOC: ER 05:25
DX: R56.9 Unspecified convulsions (principal); F12.10 Cannabis abuse, uncomplicated; I10 Essential (primary) hypertension
CPT/HCPCS: 99283; 96374; J2060